=== PATIENT | male | born 1950 | race Hispanic/Latino ===

== ENCOUNTER 2018-02-14 01:43 | Emergency (ER) | payer MEDICARE ==
[~2018-02-14] VITALS: Ht 167.6 cm; Wt 108.9 kg
[~2018-02-14 01:43] MED LIST: FLOMAX0.4 MG PO; LISINOPRIL10 MG PO; OMEPRAZOLE40 MG PO; SIMVASTATIN40 MG PO
--- OUTSIDE RECORDS SUMMARY | 2018-02-14 01:45 | XMS REPORT ---
[facility] Address Unknown Phone Unavailable Care Team Providers [facility] Assessment Specialist Name Role Phone SOL RITCHIE Unavailable Unavailable Problems This patient has no known problems. Allergies, Adverse Reactions, Alerts This patient has no known allergies or adverse reactions. Medications This patient has no known medications. Results Test Description Test Time Test Comments Text Results Atomic Results Result Comments MRI BRAIN WO [place] [address] Patient Name: JONATHAN JORGE MR #: [id number] : 1950 Age/Sex: 67/M Req #: [id number] Adm Physician: SOL RITCHIE MD Ordered by: JUDD SWANSON MD Report #: [id number] Location: [facility] Room/Bed: [place] [address] _ Procedure: [id number] MRI/MRI BRAIN WO Exam Date: 08/17/17 Exam Time: 1150 REPORT STATUS: Signed Exam: Brain MRI without IV contrast History: TIA like symptoms, rule out CVA, slurred speech, confusion Comparison studies: None Technique: Sagittal axial T2 FS, axial and coronal T2 FLAIR, axial T1 FLAIR, axial DWI, axial T2*GRE. Intravenous contrast: None Findings: Scalp: Normal in signal. No masses. Bone marrow: Normal in signal intensity. Brain sulci: Mildly prominent but age appropriate. Ventricles: Mild compensatory dilatation. No hydrocephalus. Extra-axial spaces: No mass, no fluid collection. Parenchyma: No mass, hemorrhage or acute ischemia. A few scattered and mildly confluent T2 FLAIR hyperintense foci in the supratentorial white matter are nonspecific but are most compatible with chronic small vessel ischemic changes. Suprasellar region: No abnormalities. Craniocervical junction: Patent foramen magnum. No Chiari malformation . Vessels: Normal flow-voids in the arteries and sinuses. IMPRESSION: 1. No acute abnormalities. 2. Specifically, no acute ischemia. 3. Mild supratentorial chronic microvascular ischemic changes. Signed by: Dr. Richelle Tan M.D. on 08/17 1:11 PM Dictated By: RICHELLE TAN MD [id number] Transcribed By: TR on 08/17/17 1311 COPY TO: JUDD SWANSON MD
[2018-02-14] MEDS ORDERED: ULTRAM 50MG50 MG PO (02:17)
[2018-02-14] MEDS ORDERED: AMLODIPINE BESYL5 MG PO (02:17)
[2018-02-14] MEDS ORDERED: BACLOFEN10 MG PO (02:17)
== END 2018-02-14 02:50 | disposition home or self-care (01) ==
LOC: FSED 01:43
DX: R42 Dizziness and giddiness (principal); I10 Essential (primary) hypertension; E78.5 Hyperlipidemia, unspecified; Z86.73 Personal history of transient ischemic attack (TIA), and cerebral infarction without residual deficits
CPT/HCPCS: 99282